=== PATIENT | female | born 2000 | race Caucasian/White ===

== ENCOUNTER 2019-06-12 17:38 | Emergency (ER) | payer MEDICAID ==
--- NOTE | 2019-06-12 18:17 | ER Document Report ---
ED Medical Screen (RME) - General Chief Complaint: Dizziness Stated Complaint: DIZZINESS Time Seen by Provider: 06/12/19 18:07 Mode of Arrival: Ambulatory Information source: Patient Notes: 18-year-old female patient presenting to the emergency department 16 weeks with complaints of dizziness. Patient reports this is been going on for several days. She denies any other symptoms. While taking vital signs the PCT noted that her heart rate was fluctuating from the 60s to the 130s. An EKG was obtained. Patient denies any chest pain or palpitations. Denies any history of any cardiac issues. Exam: Heart rate irregular Patient alert, oriented, no acute distress noted I have greeted and performed a rapid initial assessment of this patient. A comprehensive ED assessment and evaluation of the patient, analysis of test results and completion of the medical decision making process will be conducted by additional ED providers. I have specifically instructed the patient or f amily members with the patient to immediately return to any nursing staff should anything change in the patient's condition or with their chief complaint. TRAVEL OUTSIDE OF THE [place] IN LAST 30 DAYS: No - Related Data Allergies/Adverse Reactions: No Known Allergies Allergy (Verified 06/12/19 18:03) Past Medical History - Social History Chew tobacco use (# tins/day): No Frequency of alcohol use: None Drug Abuse: None Physical Exam - Vital signs Vitals: Temp Pulse Resp BP Pulse Ox 97.8 F 98 H 14 135/61 H 100 06/12/19 17:45 06/12/19 17:45 06/12/19 17:45 06/12/19 17:45 06/12/19 17:45 Course - Vital Signs Vital signs: Temp Pulse Resp BP Pulse Ox 97.8 F 98 H 14 135/61 H 100 06/12/19 17:45 06/12/19 17:45 06/12/19 17:45 06/12/19 17:45 06/12/19 17:45
[2019-06-12 18:58] LABS: ABSOLUTE EOSINOPHILS # (AUTO) 0.1 10^3/uL (0.0-0.6); ABSOLUTE MONOCYTES (AUTO) 0.7 10^3/uL (0.1-1.4); ABSOLUTE NEUT (AUTO) 8.1 10^3/uL (1.7-8.2); BASOPHILS % (AUTO) 0.2 % (0-2); EOSINOPHILS % (AUTO) 1.1 % (0-6); HEMATOCRIT 38.7 % (36.0-47.0); HEMOGLOBIN 13.6 g/dL (12.0-15.5); LYMPHOCYTES % (AUTO) 18.4 % (13-45); MEAN CORPUSCULAR HEMOGLOBIN 30.7 pg (27.0-33.4); MEAN CORPUSCULAR HGB CONC 35.1 g/dL (32.0-36.0); MEAN CORPUSCULAR VOLUME 87 fl (80-97); MONOCYTES % (AUTO) 6.1 % (3-13); PLATELET COUNT 256 10^3/uL (150-450); RED BLOOD COUNT 4.43 10^6/uL (3.72-5.28); RED CELL DISTRIBUTION WIDTH 13.1 % (11.5-14.0); SEGMENTED NEUTROPHILS % (AUTO) 74.2 % (42-78); TOTAL CELLS COUNTED % (AUTO) 100 %; WHITE BLOOD COUNT 10.9 10^3/uL (4.0-10.5)
[2019-06-12 19:21] LABS: ALBUMIN 4.1 g/dL (3.7-5.6); ALKALINE PHOSPHATASE 66 U/L (50-135); ANION GAP 10 (5-19); ASPARTATE AMINO TRANSFERASE 30 U/L (5-30); BILIRUBIN,DIRECT 0.3 mg/dL (0.0-0.4); BILIRUBIN,TOTAL 0.6 mg/dL (0.2-1.3); BLOOD UREA NITROGEN 8 mg/dL (7-20); CALCIUM 9.7 mg/dL (8.4-10.2); CARBON DIOXIDE 25 mmol/L (22-30); CHLORIDE 103 mmol/L (98-107); GLUCOSE 72 mg/dL (75-110); POTASSIUM 4.2 mmol/L (3.6-5.0); TOTAL PROTEIN 7.5 g/dL (6.3-8.2)
[2019-06-12 19:33] LABS: FREE T3 2.84 pg/mL (2.77-5.27); FREE T4 (FREE THYROXINE) 0.88 ng/dL (0.78-2.19)
[2019-06-12 19:46] LABS: THYROID STIMULATING HORMONE 1.3 uIU/mL (0.47-4.68)
[2019-06-12 20:30] LABS: AMORPHOUS SEDIMENT,URINE TRACE /HPF; APPEARANCE,URINE SLIGHTLY-CLOUDY; BILIRUBIN,URINE NEGATIVE (NEGATIVE); COLOR,URINE STRAW; GLUCOSE, URINE NEGATIVE (NEGATIVE); KETONES,URINE NEGATIVE (NEGATIVE); LEUKOCYTE ESTERASE,URINE NEGATIVE (NEGATIVE); NITRITE,URINE NEGATIVE (NEGATIVE); PROTEIN,URINE NEGATIVE (NEGATIVE); URINE SPECIFIC GRAVITY 1.008; UROBILINOGEN,URINE NEGATIVE mg/dL (<2.0)
[2019-06-12] MEDS ORDERED: METOCLOPRAMIDE HCL INJ/PF 10 MG/2 ML SDV IV ONE (21:38)
[2019-06-12] MEDS ORDERED: NORMAL SALINE 500 ML IV ONE (21:39)
[2019-06-12] MEDS ORDERED: DIPHENHYDRAMINE HCL 50 MG/ML VIAL IV ONE (21:39)
--- NOTE | 2019-06-12 21:42 | ER Document Report ---
ED General - General Chief Complaint: Dizziness Stated Complaint: DIZZINESS Time Seen by Provider: 06/12/19 18:07 Primary Care Provider: LAUREL WILLIAM MD [Primary Care Provider] - Follow up in 3-5 days Mode of Arrival: Ambulatory Notes: Patient is a 18-year-old female that comes to the emergency department for chief complaint of intermittent headaches and intermittent lightheadedness. She is G1, P0 at 16 weeks gestation by first trimester ultrasound. She states that she will occasionally feel dizzy and lightheaded but this does pass quickly. She denies chest pain, palpitations, passing out. She also states that she has had throbbing headache with some blurred vision and nausea on 2 separate occasions, she had a bad one earlier prompting her to come into the emergency department tonight but she states that headache is improved now. She denies fever, vomiting, head injury. She states she does have a history of migraines and used to have them very frequently. She is on vitamins but no other medications. She denies recreational drugs or any medical history otherwise. TRAVEL OUTSIDE OF THE [place] IN LAST 30 DAYS: No - Related Data Allergies/Adverse Reactions: No Known Allergies Allergy (Verified 06/12/19 18:03) Past Medical History - General Information source: Patient - Social History Smoking Status: Never Smoker Chew tobacco use (# tins/day): No Frequency of alcohol use: None Drug Abuse: None Lives with: Family Family History: Reviewed & Not Pertinent Patient has suicidal ideation: No Patient has homicidal ideation: No Surgical Hx: Negative - Immunizations Immunizations up to date: Yes Hx Diphtheria, Pertussis, Tetanus Vaccination: Yes Review of Systems - Review of Systems Constitutional: See HPI EENT: No symptoms reported Cardiovascular: See HPI Respiratory: No symptoms reported Gastrointestinal: No symptoms reported Genitourinary: No symptoms reported Female Genitourinary: See HPI Musculoskeletal: No symptoms reported Skin: No symptoms reported Hematologic/Lymphatic: No symptoms reported Neurological/Psychological: See HPI Physical Exam - Vital signs Vitals: Temp Pulse Resp BP Pulse Ox 97.8 F 98 H 14 135/61 H 100 06/12/19 17:45 06/12/19 17:45 06/12/19 17:45 06/12/19 17:45 06/12/19 17:45 - Notes Notes: GENERAL: Alert, interacts well. No acute distress. HEAD: Normocephalic, atraumatic. EYES: Pupils equal, round, and reactive to light. Extraocular movements intact. ENT: Oral mucosa moist, tongue midline. Oropharynx unremarkable. Airway patent. LUNGS: Clear to auscultation bilaterally, no wheezes, rales, or rhonchi. No respiratory distress. HEART: Regular rate and rhythm. No murmur ABDOMEN: Gravid abdomen, nontender, bowel sounds present. GENITOURINARY: Deferred EXTREMITIES: Moves all 4 extremities spontaneously. No edema, normal radial and dorsalis pedis pulses bilaterally. No cyanosis. BACK: no cervical, thoracic, lumbar midline tenderness. No saddle anesthesia, normal distal neurovascular exam. Moves all extremities in full range of motion. NEUROLOGICAL: Alert and oriented x3. Normal speech. Cranial nerves II through XII grossly intact. PSYCH: Normal affect, normal mood. SKIN: Warm, dry, normal turgor. No rashes or lesions noted. Course - Re-evaluation Re-evalutation: EKG and cardiac monitoring in the ED show sinus arrhythmia but no concerning findings otherwise. CBC, chemistry, thyroid panel, urinalysis unremarkable. On my evaluation she is smiling and well-appearing but does complain of a headache and is asking for treatment for her headache. No neurologic deficits, nuchal rigidity, or fever. Patient given Reglan, small amount of Benadryl, IV fluids. On reevaluation headache is completely gone, patient states she feels great and is ready for d ischarge. I discussed expectations, precautions with lightheadedness in regards to , treatment for headache, close [facility] follow-up, and return precautions. Patient and state appreciation and agreement. Stable and well-appearing at time of discharge. - Vital Signs Vital signs: Temp Pulse Resp BP Pulse Ox 98.0 F 98 H 15 106/64 100 06/12/19 22:37 06/12/19 17:45 06/12/19 22:37 06/12/19 22:37 06/12/19 22:37 - Laboratory Result Diagrams: 06/12/19 18:24 06/12/19 18:24 Laboratory results interpreted by me: 06/12/19 06/12/19 18:24 18:24 WBC 10.9 H Creatinine 0.39 L Glucose 72 L - EKG Interpretation by Me Additional EKG results interpreted by me: EKG shows sinus arrhythmia at a rate of 72, QTC of 416, TX interval of 168, normal axis, no T wave inversions or ST segment changes in consecutive leads. Discharge - Discharge Clinical Impression: Lightheadedness Headache Qualifiers: Headache type: unspecified Headache chronicity pattern: acute headache Intractability: not intractable Qualified Code(s): R51 - Headache Condition: Stable Disposition: HOME, SELF-CARE Additional Instructions: Your work-up is reassuring at this time. For headaches you can take the Reglan if needed, you can combine this with 25 to 50 mg of Benadryl and up to 1000 mg of Tylenol for a good migraine cocktail. If you become dizzy or lightheaded I recommend sitting or lying down and elevating your legs if possible. Follow-up with [facility] for additional management. Return if you worsen including severe headache, vomiting, passing out, chest pain, fever, or any other concerning or worsening symptoms. Prescriptions: Metoclopramide HCl [Reglan] 5 mg PO ASDIR PRN #30 tablet PRN Reason: Referrals: LAUREL WILLIAM MD [Primary Care Provider] - Follow up in 3-5 days
--- NOTE | 2019-06-12 22:31 | EKG REPORT ---
SEVERITY:- OTHERWISE NORMAL ECG - SINUS ARRHYTHMIA, RATE 52-84 : Confirmed by: Mitch Simpson 12-Jun-2019 22:30:56
[2019-06-12 22:46] VITALS: BP 106/64
== END 2019-06-12 22:47 | disposition home or self-care (01) ==
LOC: ER 17:38
DX: O26.892 Other specified pregnancy related conditions, second trimester (principal); R51 Headache; R42 Dizziness and giddiness; H53.8 Other visual disturbances; R11.0 Nausea; O99.412 Diseases of the circulatory system complicating pregnancy, second trimester; I49.9 Cardiac arrhythmia, unspecified; Z3A.16 16 weeks gestation of pregnancy; Z79.899 Other long term (current) drug therapy; Z86.69 Personal history of other diseases of the nervous system and sense organs
CPT/HCPCS: 93005; 36415; 84439; 84443; 85025; 80053; 81001; 84481; 93010; J1200; J2765; J7040; 96361; 96374; 96375; 99284

== ENCOUNTER 2019-11-25 16:35 | Outpatient (CLI) | payer MEDICAID | END 2019-11-25 17:34 | disposition home or self-care (01) | LOC: LC 16:35 | PROVIDERS: ATTEND Obstetrics & Gynecology | DX: O48.0 Post-term pregnancy (principal); Z3A.34 34 weeks gestation of pregnancy | CPT/HCPCS: 59025 ==

== ENCOUNTER 2019-11-26 01:01 | Inpatient (IN) | payer MEDICAID ==
--- NOTE | 2019-11-26 01:23 | Non Stress Test Report ---
Non Stress Test Datetime Report Generated by CPN: 11/26/2019 01:23 INDICATION Indication for Study (NST) Other: IUP @ 40.0 VITAL SIGNS Temperature - NST: 98.1 Pulse - NST: 82 RESP - NST: 16 NBPSYS NST: 114 NBPDIA NST: 64 MONITORING Monitor Explained: Monitor Explained; Test Explained; Patient Verbalized Understanding Time on Monitor: 11/25/2019 16:47 Time off Monitor: 11/25/2019 17:29 NST Duration: 42 NST INTERVENTIONS NST Interventions: PO Hydration; Reposition Patient Physician Notified NST: Dr. Marrero BABY A: [id number] BABY A Movement : Present Contraction Frequency : Irregular FHR Baseline : 120 Accelerations : 15X15 Decelerations : None Variability : Moderate 6-25bpm NST Review: Meets Criteria for Reactive NST NST Review and Verified By : Jamel Carson RN NST Results: Reactive NST REPORT Report Trigger: Send Report
[2019-11-26 01:41] LABS: APPEARANCE,URINE SLIGHTLY-CLOUDY; BILIRUBIN,URINE NEGATIVE (NEGATIVE); COLOR,URINE YELLOW; GLUCOSE, URINE NEGATIVE (NEGATIVE); KETONES,URINE NEGATIVE (NEGATIVE); LEUKOCYTE ESTERASE,URINE NEGATIVE (NEGATIVE); NITRITE,URINE NEGATIVE (NEGATIVE); PROTEIN,URINE NEGATIVE (NEGATIVE); URINE SPECIFIC GRAVITY 1.012; UROBILINOGEN,URINE NEGATIVE mg/dL (<2.0)
[2019-11-26 02:01] LABS: URINE AMPHETAMINES SCREEN NEGATIVE; URINE BARBITURATES SCREEN NEGATIVE; URINE BENZODIAZEPINES SCREEN NEGATIVE; URINE COCAINE SCREEN NEGATIVE; URINE MARIJUANA (THC) SCREEN NEGATIVE; URINE METHADONE SCREEN NEGATIVE; URINE PHENCYCLIDINE SCREEN NEGATIVE
[2019-11-26] MEDS ORDERED: PROMETHAZINE HCL INJ 25 MG/1 ML VIAL IV ONE (02:41)
[2019-11-26] MEDS ORDERED: NALBUPHINE HCL INJ 10 MG/1 ML AMPULE INJ ONE (02:41)
[2019-11-26] MEDS ORDERED: MISOPROSTOL 0.2 MG TABLET ONE (02:45)
[2019-11-26] MEDS ORDERED: NALBUPHINE HCL INJ 10 MG/1 ML AMPULE ONE (02:45)
[2019-11-26] MEDS ORDERED: PROMETHAZINE HCL INJ 25 MG/1 ML VIAL ONE (02:45)
[2019-11-26] MEDS ORDERED: OXYTOCIN 10 UNIT/ML VIAL ONE (02:45)
[2019-11-26] MEDS ORDERED: OXYTOCIN/0.9 % SODIUM CHLORIDE 30 UNIT/500 ML RTUINJ ONE (02:46)
[2019-11-26] MEDS ORDERED: LIDOCAINE 1% INJ-PF (10 MG/ML) 30 ML SDV ONE (02:46)
--- NOTE | 2019-11-26 02:51 | Admission Physical ---
Datetime Report Generated by CPN: 11/26/2019 02:50 CURRENT ADMISSION Chief Complaint: Uterine Contractions; Suspected Ruptured Membranes Indication for Induction: Not Applicable Admit Impression : Term, Intrauterine ; Active Labor Admit Plan: Admit to Unit; Initiate Labor Protocol ALLERGIES Medication Allergies: No Medication Allergies: No Known Allergies (11/26/2019) Latex: No Latex Allergies Food Allergies: none Environmental Allergies: none OBSTETRICAL HISTORY EDC: 11/25/2019 00:00 : 1 Para: 0 Term: 0 : 0 SAB: 0 IAB: 0 Livin Gestational Diabetes: No Rh Sensitization: No Incompetent Cervix: No LIZZY: No Infertility: No ART Treatment: No Uterine Anomaly: No IUGR: No Hx Previous C/S: No Macrosomia: No Hx Loss/Stillborn: No PIH: No Hx : No Placenta Previa/Abruption: No Depression/PP Depression: No PTL/PROM: No Post Hemorrhage: No Current Procedures: Ultrasound Obstetrical History Comments: G1- Current SEE RECORDS Alcohol: No Marijuana : No Cocaine: No Other Illicit Drugs: No Cigarettes: Never Smoker. [id number] MEDICAL HISTORY Diabetes: No Blood Transfusion: No Pulmonary Disease (Asthma, TB): No Breast Disease: No Hypertension: No Vision Teacher Surgery: No Heart Disease: No Hosp/Surgery: Yes Autoimmune Disorder: No Anesthetic Complications: No Kidney Disease: No Abnormal Pap Smear: No Neuro/Epilepsy: No Psychiatric Disorders: No Other Medical Diseases: No Hepatitis/Liver Disease: No Significant Family History: No Varicosities/Phlebitis: No Trauma/Violence : No Thyroid Dysfunction: No INFECTIOUS HISTORY Gonorrhea: No Chlamydia: No Tuberculosis: No Syphilis: No Hepatitis: No HIV/AIDS Exposure: No Rash or Viral Illness: No HPV: No PHYSICAL EXAM General: Normal HEENT: Normal Neurologic: Normal Thyroid: Normal Heart: Normal Lungs: Normal Breast: Deferred Back: Normal Abdomen: Normal Genitourinary Exam: Normal Extremities: Normal DTRs: Normal Pelvic Type: Adequate Vital Signs: Reviewed VAGINAL EXAM Dilatation: 2 Effacement: 70 Station: -2 MEMBRANES Pooling: Positive Membranes: Ruptured FETUS A EGA: 40.1 Monitoring: External US FHR- Baseline: 120 Variability: Moderate 6-25bpm Decelerations: None FHR Category: Category I Presentation: Vertex Admit Comment: Admit for labor. EFW is 7-8 lbs PLANS FOR LABOR AND DELIVERY Feeding Preference: Breast Benefit of Breast Feed Discussed: Yes Circumcision: N/A INFORMED CONSENT Signature: with User ID: [email or web address]
[2019-11-26 03:15] LABS: ABSOLUTE LYMPHOCYTES (AUTO) 2.5 10^3/uL (0.5-4.7); ABSOLUTE MONOCYTES (AUTO) 0.8 10^3/uL (0.1-1.4); ABSOLUTE NEUT (AUTO) 10.3 10^3/uL (1.7-8.2); BASOPHILS % (AUTO) 0.1 % (0-2); EOSINOPHILS % (AUTO) 0.1 % (0-6); HEMATOCRIT 37.7 % (36.0-47.0); HEMOGLOBIN 13.1 g/dL (12.0-15.5); LYMPHOCYTES % (AUTO) 18.1 % (13-45); MEAN CORPUSCULAR HGB CONC 34.7 g/dL (32.0-36.0); MEAN CORPUSCULAR VOLUME 86 fl (80-97); MONOCYTES % (AUTO) 5.8 % (3-13); PLATELET COUNT 223 10^3/uL (150-450); RED BLOOD COUNT 4.37 10^6/uL (3.72-5.28); SEGMENTED NEUTROPHILS % (AUTO) 75.9 % (42-78); TOTAL CELLS COUNTED % (AUTO) 100 %; WHITE BLOOD COUNT 13.6 10^3/uL (4.0-10.5)
[2019-11-26] MEDS ORDERED: PENICILLIN G POTASSIUM 5,000,000 UNIT in DEXTROSE 5%-WATER 100 ML IV ONE (03:31)
[2019-11-26] MEDS ORDERED: PENICILLIN G-K 5 MILLION UNIT VIAL ONE ×2 (03:33→08:05)
[2019-11-26] MEDS ORDERED: FENTANYL/BUPIVACAINE/NS/PF 0 MCG/0 ML RTUINJ EPI ONE (06:56)
[2019-11-26] MEDS ORDERED: ROPIVACAINE HCL 0.2% INJ/PF (2 MG/ML) 20 ML SDV ONE (06:56)
[2019-11-26] MEDS ORDERED: EPHEDRINE SULFATE INJ 50 MG/1 ML AMPULE ONE (06:56)
[2019-11-26] MEDS ORDERED: PENICILLIN G POTASSIUM 2,500,000 UNIT in DEXTROSE 5%-WATER 50 ML IV SCH (07:32)
[2019-11-26] MEDS ORDERED: FENTANYL CITRATE INJ/PF 100 MCG/2 ML AMPUL ONE (07:59)
[2019-11-26] MEDS ORDERED: FENTANYL CITRATE INJ/PF 100 MCG/2 ML AMPUL IV ONE (08:03)
[2019-11-26] MEDS ORDERED: DIPH/PERTUSS(ACELL)/TETANUS VAC/PF 0.5 ML SYR (>=10YO) IM PRN (09:19)
[2019-11-26] MEDS ORDERED: ACETAMINOPHEN WITH CODEINE #3 TABLET PO PRN ×2 (09:19)
[2019-11-26] MEDS ORDERED: MISOPROSTOL 0.2 MG TABLET PR ONE (09:19)
[2019-11-26] MEDS ORDERED: DIPHENHYDRAMINE HCL 25 MG CAPSULE PO PRN (09:19)
[2019-11-26] MEDS ORDERED: GLYCERIN/WITCH HAZEL LEAF 1 EACH MED..WIPE TP PRN (09:19)
[2019-11-26] MEDS ORDERED: NA PHOS,M-B/NA PHOS,DI-BA (ADULT) 133 ML ENEMA PR PRN (09:19)
[2019-11-26] MEDS ORDERED: MAGNESIUM HYDROXIDE SUSP 30 ML UDCUP PO PRN (09:19)
[2019-11-26] MEDS ORDERED: ACETAMINOPHEN 650 MG SUPP.RECT PR PRN (09:19)
[2019-11-26] MEDS ORDERED: BENZOCAINE/MENTHOL AEROSOL SPRAY 56 ML TOP PRN (09:19)
[2019-11-26] MEDS ORDERED: OXYTOCIN/0.9 % SODIUM CHLORIDE 30 UNIT/500 ML RTUINJ IV PRN (09:19)
[2019-11-26] MEDS ORDERED: PROMETHAZINE HCL 25 MG TABLET PO PRN (09:19)
[2019-11-26] MEDS ORDERED: DIBUCAINE 1% OINTMENT 28 GM TP PRN (09:19)
[2019-11-26] MEDS ORDERED: PSEUDOEPHEDRINE HCL 30 MG TABLET PO PRN (09:19)
[2019-11-26] MEDS ORDERED: MEASLES,MUMPS&RUBELLA VACC/PF 0.5 ML VIAL SUBCUT PRN (09:19)
[2019-11-26] MEDS ORDERED: IBUPROFEN 800 MG TABLET ONE (09:56)
[2019-11-26] MEDS ORDERED: BENZOCAINE/MENTHOL AEROSOL SPRAY 56 ML ONE (09:57)
[2019-11-26] MEDS: PRENATAL VITAMIN W DHA CAPSULE PO SCH (11:59)
[2019-11-26] MEDS: FERROUS SULFATE 325 MG TABLET PO SCH ×2 (11:59→17:54)
[2019-11-26] MEDS: FAMOTIDINE 20 MG TABLET PO SCH ×2 (11:59→22:20)
[2019-11-26] MEDS: SENNOSIDES/DOCUSATE 8.6-50 MG 1 EACH TABLET PO SCH (11:59)
[2019-11-26] MEDS: DOCUSATE SODIUM 100 MG CAPSULE PO SCH ×2 (11:59→17:54)
[2019-11-26] MEDS: IBUPROFEN 800 MG TABLET PO SCH ×2 (14:10→22:21)
[2019-11-26] MEDS ORDERED: FAMOTIDINE 20 MG TABLET ONE (22:15)
[2019-11-27] MEDS: IBUPROFEN 800 MG TABLET PO SCH ×3 (05:10→21:22)
[2019-11-27 06:49] LABS: MEAN CORPUSCULAR HGB CONC 34.2 g/dL (32.0-36.0); MEAN CORPUSCULAR VOLUME 88 fl (80-97); PLATELET COUNT 177 10^3/uL (150-450); RED BLOOD COUNT 3.31 10^6/uL (3.72-5.28); RED CELL DISTRIBUTION WIDTH 13.9 % (11.5-14.0); WHITE BLOOD COUNT 14.9 10^3/uL (4.0-10.5)
[2019-11-27 06:50] LABS: HEMOGLOBIN 9.9 g/dL (12.0-15.5)
[2019-11-27] MEDS: PRENATAL VITAMIN W DHA CAPSULE PO SCH (09:46)
[2019-11-27] MEDS: FERROUS SULFATE 325 MG TABLET PO SCH ×2 (09:46→17:44)
[2019-11-27] MEDS: DOCUSATE SODIUM 100 MG CAPSULE PO SCH ×2 (09:46→17:44)
[2019-11-27] MEDS: SENNOSIDES/DOCUSATE 8.6-50 MG 1 EACH TABLET PO SCH (09:46)
[2019-11-27] MEDS: FAMOTIDINE 20 MG TABLET PO SCH ×2 (10:06→21:23)
--- NOTE | 2019-11-27 16:24 | PDOC PROGRESS REPORT ---
Subjective-OB Progress Note for:: 11/27/19 Subjective: 19yo G1 now P1 s/p ppd1. Ambulating, voiding and brestfeeding without difficulty. Reports pain well controlled by medication, denies any concerns today Physical Exam (OB) Vital Signs: Temp Pulse Resp BP Pulse Ox 98.1 F 57 L 16 91/72 L 100 11/27/19 07:57 11/27/19 07:57 11/27/19 07:57 11/27/19 07:57 11/27/19 07:57 Intake & Output 11/26/19 11/27/19 11/28/19 06:59 06:59 06:59 Intake Total 400 450 Balance 400 450 Weight 67.6 kg - General General Appearance: Appears well In distress: None - PIH/Pre-Eclampsia Clonus: Negative Headache: Absent Epigastric Pain: No Visual Changes: No - Episiotomy/Laceration Site Condition: Well Approximated - Lochia Lochia Amount: Small 10-25 ml Lochia Color: Rubra/Red - Abdomen Description: Soft Hernia Present: No Fundal Description: Firm, Midline Fundal Height: u/u - u/2 - Respiratory Respiratory Status: No respiratory distress - Extremities Upper extremity: Normal inspection Lower extremities: Normal inspection - Neurological Cognition: Normal Orientation: AAOx4 - Psychological Associated symptoms: Normal affect, Normal mood Objective-Diagnostic Laboratory: 11/27/19 06:10 11/27/19 06:10 WBC 14.9 H RBC 3.31 L Hgb 9.9 L D Hct 29.0 L MCV 88 MCH 30.0 MCHC 34.2 RDW 13.9 Plt Count 177 Assessment and Plan(PN) - Assessment and Plan (1) Shoulder dystocia, delivered Is this a current diagnosis for this admission?: Yes Plan: delivered (2) Perineal laceration during delivery, delivered Is this a current diagnosis for this admission?: Yes Plan: continue to monitor for s/s of infection (3) Acute blood loss anemia Is this a current diagnosis for this admission?: Yes Plan: increase dietary iron and FeSO4 BID - Time Spent with Patient Time with patient: Less than 15 minutes Medications reviewed and adjusted accordingly: Yes - Disposition Anticipated Discharge Disposition: Home, Self Care Anticipated Discharge Timeframe: within 24 hours
[2019-11-27] MEDS ORDERED: FAMOTIDINE 20 MG TABLET ONE (21:09)
[2019-11-28] MEDS: IBUPROFEN 800 MG TABLET PO SCH (05:28)
[2019-11-28] MEDS ORDERED: MEASLES,MUMPS&RUBELLA VACC/PF 0.5 ML VIAL SUBCUT PRN (10:00)
[2019-11-28] MEDS ORDERED: DIPH/PERTUSS(ACELL)/TETANUS VAC/PF 0.5 ML SYR (>=10YO) IM PRN (10:00)
[2019-11-28] MEDS: FERROUS SULFATE 325 MG TABLET PO SCH (10:03)
[2019-11-28] MEDS: SENNOSIDES/DOCUSATE 8.6-50 MG 1 EACH TABLET PO SCH (10:03)
[2019-11-28] MEDS: PRENATAL VITAMIN W DHA CAPSULE PO SCH (10:03)
[2019-11-28] MEDS: DOCUSATE SODIUM 100 MG CAPSULE PO SCH (10:03)
[2019-11-28] MEDS: FAMOTIDINE 20 MG TABLET PO SCH (10:16)
--- NOTE | 2019-11-28 12:24 | PDOC PROGRESS REPORT ---
Subjective-OB Progress Note for:: 11/28/19 Subjective: Doing well, no c/o, ready to go home, friend at [facility] and baby Physical Exam (OB) Vital Signs: Temp Pulse Resp BP Pulse Ox 98.0 F 73 18 110/74 100 11/28/19 07:24 11/28/19 07:24 11/28/19 07:24 11/28/19 07:24 11/28/19 07:24 Intake & Output 11/27/19 11/28/19 11/29/19 06:59 06:59 06:59 Intake Total 400 750 Balance 400 750 - PIH/Pre-Eclampsia Clonus: Negative Headache: Absent Epigastric Pain: No Visual Changes: No - Lochia Lochia Amount: Small 10-25 ml Lochia Color: Rubra/Red - Abdomen Description: Soft, Round Hernia Present: No Fundal Description: Firm, Midline Fundal Height: u/u - u/2 Objective-Diagnostic Laboratory: 11/27/19 06:10 Assessment and Plan(PN) - Assessment and Plan (1) Shoulder dystocia, delivered Is this a current diagnosis for this admission?: Yes (2) Perineal laceration during delivery, delivered Is this a current diagnosis for this admission?: Yes (3) Acute blood loss anemia Is this a current diagnosis for this admission?: Yes - Time Spent with Patient Time with patient: Less than 15 minutes Medications reviewed and adjusted accordingly: Yes - Disposition Anticipated Discharge Disposition: Home, Self Care Anticipated Discharge Timeframe: within 24 hours
--- NOTE | 2019-11-28 12:29 | PDOC DISCHARGE SUMMARY ---
Impression - Admit/DC Date/PCP Admission Date/Primary Care Provider: 11/26/19 02:07 MARGUERITE NULL MD Discharge Date: 11/28/19 - Discharge Diagnosis (1) Shoulder dystocia, delivered Is this a current diagnosis for this admission?: Yes (2) Perineal laceration during delivery, delivered Is this a current diagnosis for this admission?: Yes (3) Acute blood loss anemia Is this a current diagnosis for this admission?: Yes (4) Delivery normal Is this a current diagnosis for this admission?: Yes - Additional Information Resuscitation Status: Full Code Discharge Diet: As Tolerated, Regular Discharge Activity: Activity As Tolerated Referrals: MARGUERITE NULL MD [Primary Care Provider] - ([facility] and make an appointment. ) Home Medications: Vitamin [-U Multiple Vitamin Capsule] 1 cap PO DAILY 06/12/19 HPI Gestational Age: 40.1 Reason(s) for Admission: Onset of Labor, PROM Procedures: Ultrasound Intrapartum Procedure Note: shoulder dystocia Complication(s): Laceration-Perineal Laceration-Degree: 2nd Hospital Course Hospital Course: routine Results Laboratory Results: WBC 14.9 10^3/uL (4.0-10.5) H 11/27/19 06:10 RBC 3.31 10^6/uL (3.72-5.28) L 11/27/19 06:10 Hgb 9.9 g/dL (12.0-15.5) L D 11/27/19 06:10 Hct 29.0 % (36.0-47.0) L 11/27/19 06:10 MCV 88 fl (80-97) 11/27/19 06:10 MCH 30.0 pg (27.0-33.4) 11/27/19 06:10 MCHC 34.2 g/dL (32.0-36.0) 11/27/19 06:10 RDW 13.9 % (11.5-14.0) 11/27/19 06:10 Plt Count 177 10^3/uL (150-450) 11/27/19 06:10 Lymph % (Auto) 18.1 % (13-45) 11/26/19 02:56 Dale % (Auto) 5.8 % (3-13) 11/26/19 02:56 Eos % (Auto) 0.1 % (0-6) 11/26/19 02:56 Baso % (Auto) 0.1 % (0-2) 11/26/19 02:56 Absolute Neuts (auto) 10.3 10^3/uL (1.7-8.2) H 11/26/19 02:56 Absolute Lymphs (auto) 2.5 10^3/uL (0.5-4.7) 11/26/19 02:56 Absolute Monos (auto) 0.8 10^3/uL (0.1-1.4) 11/26/19 02:56 Absolute Eos (auto) 0.0 10^3/uL (0.0-0.6) 11/26/19 02:56 Absolute Basos (auto) 0.0 10^3/uL (0.0-0.2) 11/26/19 02:56 Seg Neutrophils % 75.9 % (42-78) 11/26/19 02:56 Urine Color YELLOW 11/26/19 01:10 Urine Appearance SLIGHTLY-CLOUDY 11/26/19 01:10 Urine pH 6.0 (5.0-9.0) 11/26/19 01:10 Ur Specific [place] 1.012 11/26/19 01:10 Urine Protein NEGATIVE mg/dL (NEGATIVE) 11/26/19 01:10 Urine Glucose (UA) NEGATIVE mg/dL (NEGATIVE) 11/26/19 01:10 Urine Ketones NEGATIVE mg/dL (NEGATIVE) 11/26/19 01:10 Urine Blood NEGATIVE (NEGATIVE) 11/26/19 01:10 Urine Nitrite NEGATIVE (NEGATIVE) 11/26/19 01:10 Urine Bilirubin NEGATIVE (NEGATIVE) 11/26/19 01:10 Urine Urobilinogen NEGATIVE mg/dL (<2.0) 11/26/19 01:10 Ur Leukocyte Esterase NEGATIVE (NEGATIVE) 11/26/19 01:10 Urine Ascorbic Acid NEGATIVE (NEGATIVE) 11/26/19 01:10 Membranes Rupture POSITIVE (NEGATIVE) H 11/26/19 01:20 Urine Opiates Screen NEGATIVE 11/26/19 01:10 Urine Methadone Screen NEGATIVE 11/26/19 01:10 Ur Barbiturates Screen NEGATIVE 11/26/19 01:10 Ur Phencyclidine Scrn NEGATIVE 11/26/19 01:10 Ur Amphetamines Screen NEGATIVE 11/26/19 01:10 U Benzodiazepines Scrn NEGATIVE 11/26/19 01:10 Urine Cocaine Screen NEGATIVE 11/26/19 01:10 U Marijuana (THC) Screen NEGATIVE 11/26/19 01:10 RPR NONREACTIVE (NONREACTIVE) 11/26/19 02:56 HIV 1&2 Antibody NEGATIVE (NEGATIVE) 11/26/19 02:56 Blood Type O POSITIVE 11/26/19 02:56 Antibody Screen NEGATIVE 11/26/19 02:56 Plan Health Concerns: normal pp Plan of Treatment: discharge home Goals: no complications Time Spent: Less than 30 Minutes
[2019-11-28 12:32] VITALS: BP 108/56
--- NOTE | 2019-11-29 13:49 | Delivery Summary ---
Del Sum A-C Datetime Report Generated by CPN: 11/29/2019 13:48 DELIVERY PERSONNEL DELIVERY PERSONNEL: [id number] Delivery Doctor:: Miranda Lilly CNM Nurse Gliding Pilot Instructor Certified:: Miranda Lilly CNM Labor and Delivery Nurse:: Wilberto Reis RNtitle insurance sales representative Nurse:: Katelyn Carson RN Nursery Nurse:: Precious Xiao LPN Nursery Nurse:: Emely Pantoja RN Absence Management Consultant/NURSERY SCHOOL ATTENDANT: Radha Eddy CNA II Additional Personnel: : Iris Monteiro RN MATERNAL INFORMATION Delivery Anesthesia: Local Medications After Delivery: Pitocin Bolus-Please Comment; Pitocin 30 Units in 500ml NS/D5W; Cytotec 1000mcg Per Rectum/Vagina Delivery QBL: 200 Maternal Complications: Other Complication Details: shoulder dystocia Provider Comments: pt pushing on hands and knees, turned to back and , small epis made after 15 minutes of crowing, delivery of head, tight nuchal cord, reduced, pt uncontrolled pushing, gentle lateral traction x 1, Gurmeet with suprapubic pressure, call for Dr. Sanders, delivery of , placed on mothers abd, stimulated and suctioned, vigorous cry, moving all extremities well, crying, spont delivery of grossly nl placenta, 3 VC, FFFM, uterine atony, Pitocin, massage and cytotec 1000mcg via rectum, epis repaired without difficulty talking to [facility] on phone who is deployed baby and mom remains in recovery in stable condition (Annotations: Data stored by CPN on behalf of user) LABOR SUMMARY [facility]: 11/25/2019 00:00 No. Babies in Womb: 1 Attempted: No Labor Anesthesia: IV Sedation LABOR INFORMATION Reason for Induction: Not Applicable Onset of Labor: 11/26/2019 00:45 Complete Dilatation: 11/26/2019 08:15 Oxytocin: N/A Group B Beta Strep: Unknown Antibiotics # of Doses: 1 Name of Antibiotic Given: Penicillin Steroids Given: None Reason Steroids Not Administered: Not Applicable MEMBRANES Membranes Rupture Method: Spontaneous Rupture of Membranes: 11/26/2019 00:45 Length of Rupture (hr): 7.88 Amniotic Fluid Color: Clear Amniotic Fluid Amount: Moderate Amniotic Fluid Odor: Normal STAGES OF LABOR Stage 1 hr: 7 Stage 1 min: 30 Stage 2 hr: 0 Stage 2 min: 23 Stage 3 hr: 0 Stage 3 min: 7 Total Time in Labor hr: 8 Total Time in Labor min: 0 VAGINAL DELIVERY Episiotomy: Median Laceration #1: Perineal Laceration Extension #1: Second Degree Laceration Repair: Yes Laceration Repair Note: 2-0 chromic without difficulty using 10cc Lidocaine Sponge Count Correct: N/A Sharps Count Correct: N/A CSECTION DELIVERY Primary Indication: N/A Secondary Indication: N/A CSection Incidence: N/A Labor: N/A Elective: N/A CSection Incision: N/A BABY A INFORMATION Delivery Date/Time: 11/26/2019 08:38 Method of Delivery: Vaginal Method of Delivery: Vaginal Nurse Controlled Delivery: No Born in Route : No : N/A Forceps: N/A Vacuum Extraction: N/A Shoulder Dystocia : Yes SHOULDER DYSTOCIA BABY A Delivery of Head: 11/26/2019 08:37 Time Head to Delivery : 1.0 1st Intervention to Resolve: Gentle Attempt at Traction, Assisted by Maternal Expulsive Efforts 2nd Intervention to Resolve: Episiotomy 3rd Intervention to Resolve: McRobert's Maneuver 4th Intervention to Resolve: Suprapubic Pressure Verify NO Fundal Pressure: No Fundal Pressure Applied Arm Under Symphisis at Del: Right PRESENTATION/POSITION BABY A Presentation: Cephalic Cephalic Presentation: Vertex Vertex Position: Left Occipital Anterior Breech Presentation: N/A PLACENTA INFORMATION BABY A Placenta Delivery Time : 11/26/2019 08:45 Placenta Method of Delivery: Manual Removal Placenta Method of Delivery: Spontaneous Placenta Status: Delivered SCORES BABY A Heart Rate 1 min: >100 bpm Resp Effort 1 min: Slow, Irregular Reflex Irritability 1 min: Cough or Sneeze or Pulls Away Muscle Tone 1 min: Active Motion Color 1 min: Body [place], Extremities Blue Resuscitation Effort 1 min: Tactile Stimulation SCORE 1 MIN: 8 Heart Rate 5 min: >100 bpm Resp Effort 5 min: Good Cry Reflex Irritability 5 min: Cough or Sneeze or Pulls Away Muscle Tone 5 min: Active Motion Color 5 min: Body [place], Extremities Blue Resuscitation Effort 5 min: N/A SCORE 5 MIN: 9 INFANT INFORMATION BABY A Gestational Age at Delivery: 40.1 Gestational Status: Full Term- 39- 40.6 Weeks Infant Outcome : Liveborn Condition : Stable Infant Sex: Female Sex: Female IDENTIFICATION BABY A Infant Verification Date/Time: 11/26/2019 09:47 ID Band Number: [id number] Mother's Name Verified: Yes RN Verifying : Wilberto Reis WILLY Additional Verifying Personnel: Napoleon Carson RN WEIGHT/LENGTH BABY A Birthweight (gm): 3383 Weight (lb): 7 Weight (oz): 7 Length (in): 20.00 Length (cm): 50.80 CORD INFORMATION BABY A No. Cord Vessels: 3 Nuchal Cord : N/A Cord Blood Taken: Yes-For Eval (Mom's Blood Type - or O+) Infant Suction: None ASSESSMENT BABY A Infant Complications: Extended Bradycardia; Multiple Variable Decels Physical Findings at Delivery: Caput Succedaneum; Molding of the Head; Bruising Infant Respirations: Appears Normal Skin to Skin: Yes Veterans Adviser/ALS Called : No Care By: Bereket Pantoja RN Transferred To: Remains with Mother BABY B INFORMATION : N/A
== END 2019-11-28 13:21 | disposition home or self-care (01) | DRG 806 ==
LOC: LC 01:01 → LR 02:07 → 2S 11:03
PROVIDERS: ADMIT Obstetrics & Gynecology; ATTEND Obstetrics & Gynecology
PROC: 10E0XZZ Delivery of Products of Conception, External Approach (ICD-10-PCS; principal; 2019-11-26)
PROC: 0KQM0ZZ Repair Perineum Muscle, Open Approach (ICD-10-PCS; 2019-11-26)
PROC: 0W8NXZZ Division of Female Perineum, External Approach (ICD-10-PCS; 2019-11-26)
DX: O66.0 Obstructed labor due to shoulder dystocia (principal); D62 Acute posthemorrhagic anemia; Z37.0 Single live birth; O70.1 Second degree perineal laceration during delivery; O69.1XX0 Labor and delivery complicated by cord around neck, with compression, not applicable or unspecified; O76 Abnormality in fetal heart rate and rhythm complicating labor and delivery; O99.02 Anemia complicating childbirth; Z3A.40 40 weeks gestation of pregnancy
CPT/HCPCS: 36415; 80307; 81005; 84112; 85025; 85027; 86592; 86701; 86850; 86900; 86901; J2300; J2540; J2550; J2590; J2795; J3010; J3490; J7060